=== PATIENT | male | born 1995 | race African-American/Black ===

== ENCOUNTER 2017-03-28 18:33 | Emergency (ER) | payer SELFPAY | END 2017-03-28 20:00 | disposition home or self-care (01) | LOC: ERS 18:33 | DX: L01.00 Impetigo, unspecified (principal); B86 Scabies | CPT/HCPCS: 99282 ==

== ENCOUNTER 2017-03-31 19:26 | Emergency (ER) | payer SELFPAY ==
[2017-03-31] MEDS ORDERED: diphenhydrAMINE 25 MG CAP ONE (21:07)
[2017-03-31] MEDS ORDERED: Dexamethasone 4 mg/ml Vial ONE (21:07)
[2017-03-31] MEDS ORDERED: Famotidine 20 MG TAB ONE ×2 (21:07)
== END 2017-03-31 21:15 | disposition home or self-care (01) ==
LOC: ERS 19:26
DX: L29.9 Pruritus, unspecified (principal)
CPT/HCPCS: 99282; J1100

== ENCOUNTER 2017-05-09 23:03 | Emergency (ER) | payer SELFPAY | END 2017-05-10 | disposition home or self-care (01) | LOC: ERS 23:03 | DX: L42 Pityriasis rosea (principal) | CPT/HCPCS: 99282 ==

== ENCOUNTER 2019-04-10 13:11 | Emergency (ER) | payer SELFPAY ==
[2019-04-10 14:45] LABS: #Lymphocytes 0.5 thou/uL (1.20-3.40); %Basophils 0.2 % (0.0-1.0); %Eosinophils 0.2 % (0.0-10.0); %Lymphocytes 4.5 % (21.0-51.0); %Monocytes 9.5 % (0.0-10.0); %Neutrophils 85.6 % (42.0-75.0); Hemoglobin 13.1 g/dL (14.0-18.0); Mean Corpuscular HGB CONC 32.8 g/dL (32.0-36.0); Mean Corpuscular Hemoglobin 26.4 pg (27.0-31.0); Mean Corpuscular Volume 80.5 fL (78.0-98.0); Mean Platelet Volume 6.5 fL (7.4-10.4); Platelet Count 273 thou/uL (130-400); RBC Distribution Width 11.3 % (11.5-14.5); Red Blood Cell (RBC) Count 4.97 mill/uL (4.70-6.10); White Blood Cell (WBC) Count 10.5 thou/uL (4.8-10.8)
[2019-04-10 15:05] LABS: ALT (SGPT) 70 U/L (8-55); AST (SGOT) 32 U/L (5-34); Albumin 4.4 g/dL (3.5-5.0); Alkaline Phosphatase 66 U/L (40-110); Anion Gap 10 mmol/L (10-20); BUN (Urea Nitrogen) 9 mg/dL (8.9-20.6); Bilirubin, Total 0.5 mg/dL (0.2-1.2); Calc. Creatinine Clearance 0 mL/min (70-130); Calcium 8.9 mg/dL (7.8-10.44); Carbon Dioxide 23 mmol/L (22-29); Chloride 109 mmol/L (98-107); Estimated GFR-MDRD Greater than 90; Globulin 3.3 g/dL (2.4-3.5); Glucose 109 mg/dL (70-105); Lipase 20 U/L (8-78); Protein, Total 7.7 g/dL (6.0-8.3); Sodium 138 mmol/L (136-145)
== END 2019-04-10 15:25 | disposition home or self-care (01) ==
LOC: ERS 13:11
DX: R11.2 Nausea with vomiting, unspecified (principal)
CPT/HCPCS: 36415; 80053; 83690; 85025; 87804; 99284

== ENCOUNTER 2021-04-02 09:10 | Emergency (ER) | payer OTHER, SELFPAY ==
[2021-04-02] MEDS ORDERED: Iopamidol-370 76% 500 ML 1 ML ONE (11:12)
[2021-04-02] MEDS ORDERED: Ketorolac Tromethamine 30 MG/ML VIAL ONE (11:14)
== END 2021-04-02 12:07 | disposition home or self-care (01) ==
LOC: ERS 09:10
DX: S30.1XXA Contusion of abdominal wall, initial encounter (principal); S90.31XA Contusion of right foot, initial encounter; V43.53XA Car driver injured in collision with pick-up truck in traffic accident, initial encounter
CPT/HCPCS: 74177; 96374; J1885; Q9967

== ENCOUNTER 2021-05-11 18:23 | Emergency (ER) | payer SELFPAY ==
[2021-05-11] MEDS ORDERED: Ondansetron ODT 4 MG TAB ONE (18:51)
[2021-05-11] MEDS ORDERED: Acetaminophen 500 MG TAB ONE (18:51)
[2021-05-11 18:56] LABS: #Eosinphils 0.1 thou/uL (0.0-0.7); #Lymphocytes 0.8 thou/uL (1.20-3.40); #Monocytes 0.9 thou/uL (0.11-0.59); #Neutrophils 9.1 thou/uL (1.40-6.50); %Basophils 0.1 % (0.0-1.0); %Eosinophils 0.7 % (0.0-10.0); %Lymphocytes 7.1 % (21.0-51.0); %Monocytes 8.2 % (0.0-10.0); Hemoglobin 13.9 g/dL (14.0-18.0); Mean Corpuscular HGB CONC 33.4 g/dL (32.0-36.0); Mean Corpuscular Hemoglobin 27.1 pg (27.0-31.0); Mean Corpuscular Volume 81.3 fL (78.0-98.0); Mean Platelet Volume 6.8 fL (7.4-10.4); Platelet Count 347 thou/uL (130-400); RBC Distribution Width 11.4 % (11.5-14.5); Red Blood Cell (RBC) Count 5.12 mill/uL (4.70-6.10); White Blood Cell (WBC) Count 10.8 thou/uL (4.8-10.8)
[2021-05-11 19:20] LABS: ALT (SGPT) 81 U/L (8-55); AST (SGOT) 34 U/L (5-34); Albumin 4.5 g/dL (3.5-5.0); Alkaline Phosphatase 55 U/L (40-110); Anion Gap 18 mmol/L (10-20); BUN (Urea Nitrogen) 12 mg/dL (8.9-20.6); Bilirubin, Total 0.9 mg/dL (0.2-1.2); Calc. Creatinine Clearance 0 mL/min (70-130); Calcium 9.8 mg/dL (7.8-10.44); Carbon Dioxide 17 mmol/L (22-29); Chloride 106 mmol/L (98-107); Glucose 126 mg/dL (70-105); Lipase 13 U/L (8-78); Potassium 3.5 mmol/L (3.5-5.1); Protein, Total 8.5 g/dL (6.0-8.3); Sodium 137 mmol/L (136-145)
== END 2021-05-11 20:20 | disposition left against medical advice (07) ==
LOC: ERS 18:23
DX: Z53.21 Procedure and treatment not carried out due to patient leaving prior to being seen by health care provider (principal)
CPT/HCPCS: 36415; 80053; 83605; 83690; 85025; 87804; Q0162